=== PATIENT | female | born 1990 | race African-American/Black ===

== ENCOUNTER 2019-07-06 17:36 | Emergency (ER) | payer BC, SELFPAY ==
[2019-07-06 17:52] VITALS: BP 144/93; PULSE 91; RESP 24; TEMP 36.4; O2SAT 100
--- NOTE | 2019-07-06 19:04 | ED.GENADULT ---
HPI - General Adult General Chief complaint: Unspecified Stated complaint: ELEVATED BLOOD PRESSURE Time Seen by Provider: 07/06/19 18:30 Source: patient and family Mode of arrival: ambulatory Limitations: no limitations History of Present Illness HPI narrative: 29-year-old female presents for evaluation of headache that developed yesterday. She reports that has since improved. She also had nausea, upper abdominal pain yesterday along with 5+ episodes of diarrhea. Those symptoms have also improved however her abdomen feels a little unsettled still. She is reporting fatigue, rhinorrhea, congestion, mild cough. She took her blood pressure at home today and it was 150/130 which prompted her to come in. She reports a history of -induced hypertension that went away after delivery. She is not on any medication. She has a strong family history. She is denying any vision changes, eye pain, numbness or tingling to face or extremities, confusion, weakness, chest pain, shortness of breath, abnormal swelling. She is used ibuprofen for her headache with improvement. PCP is Dr. Bean and she was there 2 weeks ago for routine checkup, he had no concerns of hypertension at that time. Related Data Home Medications Medication Instructions Recorded Confirmed sertraline 50 mg tablet 50 mg PO DAILY 04/06/19 05/26/19 norethindrone (contraceptive) 0.35 mg PO DAILY 05/26/19 05/26/19 Allergies Allergy/AdvReac Type Severity Reaction Status Date / Time latex Allergy Unknown SWELLING Verified 05/26/19 17:43 BURNING SKIN Review of Systems Review of Systems: Narrative: CONSTITUTIONAL: Denies fever, chills, weight loss, or sweats. EYES: Denies visual changes, redness, or discharge. ENT: Head reports rhinorrhea, congestion. Denies sore throat, otalgia. CARDIOVASCULAR: Denies chest pain, palpitations, or edema. RESPIRATORY: Denies dyspnea. Reports mild cough GASTROINTESTINAL: Reports abdominal pain, nause, diarrhea but has since resolved. Denies vomiting. GENITOURINARY: Denies dysuria, hematuria, urinary frequency, malordous urine SKIN: Denies rash or itching. MUSCULOSKELETAL: Denies back pain, joint pain, myalgia, swelling NEUROLOGIC: Denies numbness, weakness. Reports headache that has resolved. All systems reviewed & are unremarkable except as noted in HPI and below PMFSH Social History Social History Smoking status: Never smoker Second hand tobacco smoke exposure: No Alcohol intake: never Comments At the time of my signature, I agree with nursing past medical, surgical, social and family history. There is no relevant family history pertinent to the presenting complaint. Exam Narrative: Exam Narrative: GENERAL: No distress, well appearing, well nourished, alert and calm HEAD: Normocephalic, atraumatic. No sinus tenderness noted EYES: Pupils equal, round. Extraocular movements intact. Conjunctivae without redness or drainage. EARS: Tympanic membranes without erythema. TM landmarks intact with good light reflex. Ear canals without discharge. NOSE: Nares patent. Nasal turbinates noninflamed. No nasal discharge MOUTH: Mucous membranes moist. No lesions. No cyanosis. Dentition grossly normal. THROAT: Oropharynx without signs erythema, exudates or lesions. Tonsils not enlarged. NECK: Supple. No lymphadenopathy. RESPIRATORY: Airway patent. Chest clear to auscultation bilaterally. Breath sounds equal bilaterally. No retractions. CARDIOVASCULAR: Regular rate and rhythm. No murmurs, rubs, gallops, or clicks. Capillary refill <2 seconds. GASTROINTESTINAL: Soft, nontender, non-distended. Bowel sounds normoactive. No masses. No organomegaly. No CVA tenderness MUSCULOSKELETAL: Range of motion grossly normal in all four extremities. Strength grossly normal in all four extremities. No edema. No swelling SKIN: Color normal. Warm and dry. No rashes. NEURO: Alert. Motor intact in a
== END 2019-07-06 19:19 | disposition home or self-care (01) ==
PROVIDERS: Emergency Provider Nurse Practitioner
DX: B34.9 Viral infection, unspecified (principal); R03.0 Elevated blood-pressure reading, without diagnosis of hypertension
CPT/HCPCS: 87804; 99212; G0463

== ENCOUNTER 2019-07-28 17:06 | Emergency (ER) | payer BC, SELFPAY ==
[2019-07-28 17:14] VITALS: BP 137/89; PULSE 91; RESP 18; TEMP 36.5; O2SAT 100
--- NOTE | 2019-07-28 17:42 | ED.GENADULT ---
HPI - General Adult General Chief complaint: Upper Respiratory Infection Stated complaint: lingering cough Time Seen by Provider: 07/28/19 17:42 Source: patient and RN notes reviewed Mode of arrival: ambulatory Limitations: no limitations History of Present Illness HPI narrative: 29-year-old -[place] female presents with complaints of upper respiratory infection, facial congestion, facial pain, cough, for the past 30 days. Génesis says she was recently treated for above symptoms and has a lingering cough, intermittent headaches (not the worst of her life). Dayquil and Natty-Tryon cold and flu with some relief. No facial swelling. Dry cough/intermittent productive cough (yellow-green phlegm). Nasal congestion and rhinorrhea. No chest pain or shortness of breath. No exacerbating factors. Denies fever or chills. Denies nausea, vomiting, and abdominal pain. Tolerating po intake well. Remains active. Génesis denies being , 1 week ago. Some parts of this dictation were generated by voice recognition software and may contain typographical and/or grammatical inaccuracies. Related Data Home Medications Medication Instructions Recorded Confirmed sertraline 50 mg tablet 50 mg PO DAILY 04/06/19 07/28/19 norethindrone (contraceptive) 0.35 mg PO DAILY 05/26/19 07/28/19 Allergies Allergy/AdvReac Type Severity Reaction Status Date / Time latex Allergy Unknown SWELLING Verified 07/28/19 17:23 BURNING SKIN Review of Systems Review of Systems: Narrative: CONSTITUTIONAL: Denies fever, chills, sweats. EYES: Denies visual changes, redness, discharge. ENT: Complains of rhinorrhea, congestion, facial pain and congestion. Denies sore throat, otalgia. CARDIOVASCULAR: Denies chest pain, palpitations, edema. RESPIRATORY: Denies dyspnea, wheezing. Complains of dry cough, intermittent productive. GASTROINTESTINAL: Denies abdominal pain, nausea, vomiting, diarrhea. GENITOURINARY: Denies dysuria, hematuria, abnormal discharge. SKIN: Denies rash or itching. MUSCULOSKELETAL: Denies acute back pain, joint pain, or myalgia. NEUROLOGIC: Denies numbness or focal weakness. Complains of intermittent JUARES. PSYCHIATRIC: Denies anxiety or depression. All systems reviewed & are unremarkable except as noted in HPI and below. [facility], [facility] Past Medical History Medical History (Updated 08/06/19 @ 03:05 by ALYSIA Perry) Anxiety Depression Hypertension Surgical History Surgical History H/O section Family History Family History Father Hypertension Family history of diabetes mellitus in first degree relative Mother Hypertension Grandparent Family history of malignant neoplasm of cervix Social History Social History (Updated 07/28/19 @ 18:12 by ALYSIA Perry) Smoking status: Never smoker Second hand tobacco smoke exposure: No Alcohol intake: never Substance use: never Living arrangements: with family Occupation/Education: occupation Gender identity (if verbalized by the patient): Female Comments At time of signature, agree with nurse past medical, surgical, social, and family history. There is no relevant family history pertinent to the presenting complaint. Exam Narrative: Exam Narrative: GENERAL: This is a well-nourished, well-developed patient, in no apparent distress. Talks in full sentences and ambulates with steady gait without dyspnea. HEAD: normocephalic, atraumatic. EYES: PERRL. Sclera clear/white. Vision is grossly intact. EARS: Pinna is normal shape and contour. Clear external auditory canals. Unable to see TMs due to large amount of cerumen, will attempt to remove, see procedure section. No gross hearing deficit. NOSE: External nose normal with no obvious nasal discharge, nares with mild redness and enlarged turbinates, clear rhinorrhea. SINUSES: Mild
== END 2019-07-28 18:15 | disposition home or self-care (01) ==
PROVIDERS: Emergency Provider Nurse Practitioner Family
DX: J00 Acute nasopharyngitis [common cold] (principal); J01.90 Acute sinusitis, unspecified; H61.23 Impacted cerumen, bilateral; F41.9 Anxiety disorder, unspecified; F32.9 Major depressive disorder, single episode, unspecified
CPT/HCPCS: 69209; 99213; G0463

== ENCOUNTER 2020-03-19 16:24 | Emergency (ER) | payer BC, SELFPAY ==
--- NOTE | 2020-03-19 16:28 | ED.GENADULT ---
HPI - General Adult General Chief complaint: Extremity Injury, Upper Stated complaint: lt hand pain/rt knee pain Time Seen by Provider: 03/19/20 16:28 Source: patient and RN notes reviewed History of Present Illness HPI narrative: Patient is a 29-year-old female who presents the urgent care with complaints of left hand and right knee pain. Patient states that the pain agitating her for months and she has been rubbing the areas . Patient denies of any known injury, fall, to cause the pain. Patient states she has been going to the [employer] with her mother and has been lifting weights recently but denies of any extreme heavy lifting or any strenuous activities. Denies any history of arthralgia. Denies any use of [id number] medications. No other acute complaints. No acute distress noted. Patient aware of the plan of care. Some parts of this dictation were generated by voice recognition software and may contain typographical and/or grammatical inaccuracies. Related Data Home Medications Medication Instructions Recorded Confirmed sertraline 50 mg tablet 50 mg PO DAILY 04/06/19 02/13/20 amlodipine 5 mg tablet 5 mg PO DAILY 02/09/20 02/13/20 norethindrone (contraceptive) 0.35 0.35 mg PO DAILY 02/09/20 02/09/20 mg tablet omeprazole 40 mg PO DAILY 03/19/20 03/19/20 Allergies Allergy/AdvReac Type Severity Reaction Status Date / Time latex Allergy Unknown SWELLING Verified 02/09/20 14:01 BURNING SKIN Review of Systems Review of Systems: Narrative: CONSTITUTIONAL: Denies fever, chills, or sweats. EYES: Denies visual changes, redness, or discharge. ENT: Denies rhinorrhea, congestion, sore throat, or otalgia. CARDIOVASCULAR: Denies chest pain, palpitations, or edema. RESPIRATORY: Denies cough or dyspnea. GASTROINTESTINAL: Denies abdominal pain, nausea, vomiting, or diarrhea. GENITOURINARY: Denies dysuria or hematuria. SKIN: Denies rash or itching. MUSCULOSKELETAL: Reports of left hand and right knee pain NEUROLOGIC: Denies headache, numbness, or weakness. All other systems reviewed are negative, except as documented in HPI. [facility] Past Medical History Medical History (Updated 03/19/20 @ 16:56 by ALYSIA Herrera) Anxiety Depression Hypertension Surgical History Surgical History H/O section Family History Family History Father Hypertension Family history of diabetes mellitus in first degree relative Mother Hypertension Grandparent Family history of malignant neoplasm of cervix Social History Social History Smoking status: Never smoker Second hand tobacco smoke exposure: No Alcohol intake: never Substance use: never Gender identity (if verbalized by the patient): Female Comments At the time of my signature, I reviewed and agree with the nursing past medical, surgical, social, and family history. There is no relevant family history pertinent to the patient complaint. Exam Narrative: Exam Narrative: GENERAL: This is a well-nourished, well-developed patient, in no apparent distress. HEAD: normocephalic, atraumatic. EYES: PERRL. Sclera clear/white. Vision is grossly intact. EARS: External ears normal NOSE: External nose normal with no obvious nasal discharge, nares without redness, no rhinorrhea. THROAT: Mucous membranes moist NECK: Neck supple CARDIOVASCULAR: Regular rate and rhythm SKIN: warm, intact with no suspicious lesions or rash, good texture and turgor. NEURO: awake, alert, and oriented to person, place and time. There were no obvious focal neurologic abnormalities. EXTREMITIES: No obvious edema, erythema, ecchymosis, abnormality or deformity noted to the left hand or right knee. Range of motion to left upper extremity and right lower extremity within normal limits. Positive strong left radial puls
[2020-03-19 16:33] VITALS: BP 145/103; PULSE 87; RESP 16; TEMP 36.7; O2SAT 100
== END 2020-03-19 16:44 | disposition home or self-care (01) ==
PROVIDERS: Emergency Provider Nurse Practitioner Family; PCP Family Medicine
DX: M77.9 Enthesopathy, unspecified (principal); M25.561 Pain in right knee; I10 Essential (primary) hypertension; F41.9 Anxiety disorder, unspecified; F32.9 Major depressive disorder, single episode, unspecified
CPT/HCPCS: 99212; G0463

== ENCOUNTER 2020-08-01 17:32 | Emergency (ER) | payer BC, SELFPAY ==
[2020-08-01 17:37] VITALS: BP 143/89; PULSE 84; RESP 16; TEMP 36.7; O2SAT 100
--- NOTE | 2020-08-01 17:40 | ED.DENTAL ---
HPI - Dental/Oral General Chief complaint: Dental/Oral Stated complaint: jaw pain Time Seen by Provider: 08/01/20 17:40 Source: patient and RN notes reviewed Mode of arrival: ambulatory Limitations: no limitations History of Present Illness HPI Narrative: 30-year-old female with history of hypertension presents with concern for left jaw pain. Reports the pain started this morning. Denies any jaw swelling, dental pain, history of dental problems. Denies any chest pain, shortness of breath, shoulder pain, arm pain, back pain. Denies nausea, vomiting, diuresis. She reports pain is exacerbated by rotating her neck or certain twisting of her body. She denies injury or trauma. She denies any intervention. MD Complaint: tooth pain Related Data Home Medications Medication Instructions Recorded Confirmed sertraline 50 mg tablet 50 mg PO DAILY 04/06/19 03/19/20 amlodipine 5 mg tablet 5 mg PO DAILY 02/09/20 03/19/20 norethindrone (contraceptive) 0.35 0.35 mg PO DAILY 02/09/20 03/19/20 mg tablet omeprazole 40 mg PO DAILY 03/19/20 03/19/20 Allergies Allergy/AdvReac Type Severity Reaction Status Date / Time latex Allergy Unknown SWELLING Verified 02/09/20 14:01 BURNING SKIN Review of Systems Review of Systems: Narrative: CONSTITUTIONAL: Denies malaise, chills, sweats, or fever. EYES: Denies visual changes, redness, or discharge. ENT: Denies rhinorrhea, congestion, sinus pain, otalgia or sore throat. CARDIOVASCULAR: Denies chest pain, palpitations, or edema. RESPIRATORY: Denies cough or dyspnea. GASTROINTESTINAL: Denies abdominal pain, nausea, vomiting, diarrhea SKIN: Denies bruising, redness, open skin MUSCULOSKELETAL: Denies back pain, joint pain, or myalgia. Reports left jaw pain NEUROLOGIC: Denies numbness, weakness, or headache. All systems reviewed & are unremarkable except as noted in HPI and below PMFSH Past Medical History Medical History (Updated 08/01/20 @ 17:53 by Juliette Weber NP) Anxiety Depression Hypertension Surgical History Surgical History H/O section Family History Family History Father Hypertension Family history of diabetes mellitus in first degree relative Mother Hypertension Grandparent Family history of malignant neoplasm of cervix Social History Social History Smoking status: Never smoker Second hand tobacco smoke exposure: No Alcohol intake: never Substance use: never Gender identity (if verbalized by the patient): Female Comments At time of signature, agree with nursing past medical, surgical, social and family history. There is no relevant family history pertinent to the presenting complaint Exam Narrative: Exam Narrative: GENERAL: Well-appearing, well-nourished, and in no acute distress. HEAD: Normocephalic, atraumatic. EYES: PERRLA, conjunctivae clear, and EOMI ENT: Nares clear, turbinates pink, no rhinorrhea or epistaxis. Mucous membranes moist. TM pearly dietz with sharp light reflex bilaterally; no tragal tenderness. Oropharynx without erythema or lesions. Tonsils not enlarged and without exudate. NECK: Supple. No lymphadenopathy. No jugular venous distension, thyromegaly, or carotid bruits. Carotids were easily palpable bilaterally. CHEST: No respiratory distress. Clear to auscultation. No bony deformities, no asymmetry. Speaks in full sentences. HEART: Regular rate and rhythm. No murmur heard. Normal peripheral pulses. SKIN: Warm, dry, no rash. NEURO: Alert and oriented x3. PSYCH: Normal mood and affect Course Course Emergency Course: Patient expressed concerns for jaw pain related to cardiac events. Patient denies any other symptoms besides jaw pain. Discussed limited diagnostic capability at [facility], offered transfer to emergency department for further evaluatio
== END 2020-08-01 17:56 | disposition home or self-care (01) ==
PROVIDERS: Emergency Provider Nurse Practitioner; PCP Family Medicine
DX: R68.84 Jaw pain (principal); F41.9 Anxiety disorder, unspecified; F32.9 Major depressive disorder, single episode, unspecified; I10 Essential (primary) hypertension
CPT/HCPCS: 99213; G0463

== ENCOUNTER 2021-05-01 17:08 | Emergency (ER) | payer BC, SELFPAY ==
[2021-05-01 17:20] VITALS: BP 145/93; PULSE 92; RESP 16; TEMP 36.4; O2SAT 100
[2021-05-01 17:22] VITALS: BP 145/93; PULSE 92; RESP 16; TEMP 36.4; O2SAT 100
--- NOTE | 2021-05-01 17:43 | ED.URI ---
HPI - URI/Sore Throat General Chief Complaint: Upper Respiratory Infection Stated Complaint: cough/sore throat/congestion History of Present Illness HPI Narrative: This is a 31 year old female that present with a virus that she has had for a week and now she is coughing more. Patient states she is vaccinated Patient states she has had a sore throat and she attempting to see if she has strep throat or not and what she can do for her symptoms Related Data Home Medications Medication Instructions Recorded Confirmed sertraline 50 mg tablet 50 mg PO DAILY 04/06/19 04/03/21 amlodipine 5 mg tablet 5 mg PO DAILY 02/09/20 04/03/21 norethindrone (contraceptive) 0.35 0.35 mg PO DAILY 02/09/20 04/03/21 mg tablet omeprazole 40 mg PO DAILY 03/19/20 04/03/21 Allergies Allergy/AdvReac Type Severity Reaction Status Date / Time latex Allergy Unknown SWELLING Verified 04/03/21 13:11 BURNING SKIN Review of Systems Review of Systems: cough sore throat All systems reviewed & are unremarkable except as noted in HPI and below PMFSH Past Medical History Medical History (Updated 05/01/21 @ 17:44 by Poonam Aguirre NP) Anxiety Depression Hypertension Surgical History Surgical History H/O section Family History Family History Father Hypertension Family history of diabetes mellitus in first degree relative Mother Hypertension Grandparent Family history of malignant neoplasm of cervix Social History Social History Smoking status: Never smoker Second hand tobacco smoke exposure: No Alcohol intake: never Substance use: never Gender identity (if verbalized by the patient): Female Comments At time as signature, I have reviewed and agree with nursing past medical, social, surgical and family history. Please see nursing chart for further information. There is no relevant family history pertinent to the presenting complaint. Exam Narrative: GENERAL:Well-appearing, well-nourished, and in no acute distress. HEAD:Normocephalic EYES: PERRLA ENT: Nares clear, no rhinorrhea clear postnasal drainage CHEST: Clear to auscultation. No respiratory distress. HEART: Regular rate and rhythm. EXTREMITIES: Normal range of motion. No edema. SKIN: Warm, dry, no rash. NEURO: No focal deficits. Alert and oriented x3. Course Course Emergency Course: Strep negative Vital Signs Vital signs: Vital Signs Temperature 97.6 F 05/01/21 17:20 Pulse Rate 92 05/01/21 17:20 Respiratory Rate 16 05/01/21 17:20 Blood Pressure 145/93 H 05/01/21 17:20 Pulse Oximetry 100 05/01/21 17:20 Temperature 97.6 F 05/01/21 17:22 Pulse Rate 92 05/01/21 17:22 Respiratory Rate 16 05/01/21 17:22 Blood Pressure 145/93 H 05/01/21 17:22 Pulse Oximetry 100 05/01/21 17:22 MDM - URI/Sore Throat Differential Diagnosis Differential diagnosis: Likely upper respiratory infection, croup, otitis media, sinusitis, viral infection, bronchitis, influenza and pharyngitis Lab Data Labs: Strep Screen Presumptive Negative *(Reference Range: Negative)* Discharge Plan Discharge Clinical Impression: Bronchitis Hypertension Qualifiers: Hypertension type: unspecified Qualified Code(s): I10 - Essential (primary) hypertension Patient Disposition: Home, Self-Care Condition: Stable Instructions: Antibiotic Form, Acute Bronchitis (ED), Hypertension (ED) Additional Instructions: Viral illness may last between 7-12days; antibiotic is NOT recommended at this time. Recommend antihistamine such as Benadryl at night time and Claritin/Zyrtec/Rani during the day Also, recommend symptomatic treatment includes: rest, fluids, and increase humidity of the air at home. Recommend Aceta
== END 2021-05-01 17:51 | disposition home or self-care (01) ==
PROVIDERS: Emergency Provider Nurse Practitioner Family; PCP Family Medicine
DX: J40 Bronchitis, not specified as acute or chronic (principal); I10 Essential (primary) hypertension; F41.9 Anxiety disorder, unspecified; F32.A Depression, unspecified
CPT/HCPCS: 87081; 87880; 99213; G0463

== ENCOUNTER 2021-05-04 20:56 | Emergency (ER) | payer BC, SELFPAY ==
[2021-05-04 20:58] VITALS: BP 153/103; PULSE 80; RESP 18; TEMP 36.7; O2SAT 100
--- NOTE | 2021-05-04 22:03 | ED.WOUNDLAC ---
HPI - Wound/Laceration General Chief Complaint: Wound/Laceration Stated Complaint: Right thumb wound,lac Time Seen by Provider: 05/04/21 21:16 History of Present Illness HPI narrative: Patient is a 31-year-old female who presents ER after suffering laceration to her right thumb. She was opening a green martini can when she cut herself on the leg. She came here because it was bleeding profusely. No numbness or tingling. Normal range of motion. It is located on the volar aspect of the medial aspect of the middle phalanx. Is superficial and does not involve tendon. Tetanus shot up-to-date. Related Data Home Medications Medication Instructions Recorded Confirmed sertraline 50 mg tablet 50 mg PO DAILY 04/06/19 04/03/21 amlodipine 5 mg tablet 5 mg PO DAILY 02/09/20 04/03/21 norethindrone (contraceptive) 0.35 0.35 mg PO DAILY 02/09/20 04/03/21 mg tablet omeprazole 40 mg PO DAILY 03/19/20 04/03/21 Allergies Allergy/AdvReac Type Severity Reaction Status Date / Time latex Allergy Unknown SWELLING Verified 04/03/21 13:11 BURNING SKIN Review of Systems Review of Systems: All systems reviewed & are unremarkable except as noted in HPI and below Integumentary/Breasts: Skin/Breast: Denies erythema and Denies rash Comments: thumb laceration Neurologic: Denies focal weakness and Denies numbness PMFSH Past Medical History Medical History (Updated 05/04/21 @ 22:05 by Ruel Morales MD) Anxiety Depression Hypertension Surgical History Surgical History H/O section Family History Family History Father Hypertension Family history of diabetes mellitus in first degree relative Mother Hypertension Grandparent Family history of malignant neoplasm of cervix Social History Social History Smoking status: Never smoker Second hand tobacco smoke exposure: No Alcohol intake: never Substance use: never Gender identity (if verbalized by the patient): Female Exam Narrative: GENERAL: Well-appearing, well-nourished, and in no acute distress. HEAD: Normocephalic, atraumatic. HEART: Regular rate and rhythm. Normal peripheral pulses. SKIN: Warm, dry, no rash. 1.5 cm laceration dorsal aspect right thumb medial aspect of middle phalanx. Superficial without involvement of tendon. Full range of motion with neurovascular intact. PSYCH: Normal mood and affect. Course Course Emergency Course: Discussed treatment plan, patient verbalized understanding. Prefers to avoid suturing so Steri-Strips placed. Vital Signs Vital signs: Vital Signs Temperature 98.0 F 05/04/21 20:58 Pulse Rate 80 05/04/21 20:58 Respiratory Rate 18 05/04/21 20:58 Blood Pressure 153/103 H 05/04/21 20:58 Pulse Oximetry 100 05/04/21 20:58 Temperature 98.0 F 05/04/21 20:58 Pulse Rate 80 05/04/21 20:58 Respiratory Rate 18 05/04/21 20:58 Blood Pressure 153/103 H 05/04/21 20:58 Pulse Oximetry 100 05/04/21 20:58 Procedures Laceration Laceration 1: Date: 05/04/21 Time: 21:50 Site: hand Side (If applicable): right Size (cm): 1.5 Description: linear Depth: simple, single layer Pre-repair: irrigated ====== Skin Level ====== Skin layer closed with: steri strips ====== Subcutaneous Layer ====== ====== Muscle Layer ====== ====== Tendon Layer ====== Discharge Plan Discharge Clinical Impression: Laceration Patient Disposition: Home, Self-Care Condition: Stable Instructions: Steristrips (ED) Additional Instructions: Return to the ER if your wound becomes red/hot/swollen, your it is draining pus, you have fever over 100.4 ?F. Prescriptions: No Action omeprazole 40 mg capsule,delayed release(DR/EC) 40 mg PO DAILY RF: 0 methylprednis
[2021-05-04 22:31] VITALS: PULSE 68; RESP 16; O2SAT 98
== END 2021-05-04 22:32 | disposition home or self-care (01) ==
PROVIDERS: Emergency Provider Emergency Medicine; PCP Family Medicine
DX: S61.011A Laceration without foreign body of right thumb without damage to nail, initial encounter (principal); I10 Essential (primary) hypertension; F41.9 Anxiety disorder, unspecified; F32.A Depression, unspecified; W26.8XXA Contact with other sharp object(s), not elsewhere classified, initial encounter
CPT/HCPCS: 99282

== ENCOUNTER 2021-09-19 12:39 | Emergency (ER) | payer BC, SELFPAY ==
[2021-09-19 12:48] VITALS: BP 133/73; PULSE 81; RESP 16; TEMP 36.3; O2SAT 99
--- NOTE | 2021-09-19 13:15 | ED.NAVMDI ---
HPI - Nausea/Vomiting/Diarrhea General Chief complaint: Nausea/Vomiting/Diarrhea Stated complaint: NAUSEA/ABD PAIN Time Seen by Provider: 09/19/21 13:06 Source: patient and RN notes reviewed Mode of arrival: ambulatory Limitations: no limitations History of Present Illness HPI Narrative: Patient presents today complaining of nausea and diarrhea since yesterday. Denies vomiting. She had 3 loose diarrhea stools yesterday and 1 so far today. Denies any blood or mucus in the stool. She does report some discomfort in the epigastrium as well. Denies fever, dysuria, hematuria, sick contacts. She has tried no [id number] medication for symptoms prior to arrival. MD elicited complaint: nausea and diarrhea Related Data Home Medications Medication Instructions Recorded Confirmed sertraline 50 mg tablet 50 mg PO DAILY 04/06/19 09/19/21 amlodipine 5 mg tablet 5 mg PO DAILY 02/09/20 09/19/21 norethindrone (contraceptive) 0.35 0.35 mg PO DAILY 02/09/20 09/19/21 mg tablet omeprazole 40 mg PO DAILY 03/19/20 09/19/21 Allergies Allergy/AdvReac Type Severity Reaction Status Date / Time latex Allergy Unknown SWELLING Verified 09/19/21 12:47 BURNING SKIN Review of Systems Review of Systems: CONSTITUTIONAL: Denies body aches, fever, chills, or sweats. EYES: Denies visual changes, redness, or discharge. ENT: Denies rhinorrhea, congestion, sore throat, or otalgia. CARDIOVASCULAR: Denies chest pain, palpitations, or edema. RESPIRATORY: Denies cough or dyspnea. GASTROINTESTINAL: Denies vomiting.+ Nausea, diarrhea, abdominal discomfort GENITOURINARY: Denies dysuria or hematuria. SKIN: Denies rash, itching, or wounds. MUSCULOSKELETAL: Denies back pain, joint pain, or myalgia. NEUROLOGIC: Denies headache, numbness, tingling, or weakness. PSYCH: Denies depression or anxiety. [facility] Past Medical History Medical History (Updated 09/19/21 @ 14:25 by Joycelyn Hill, ALYSIA, GUILLERMO) Anxiety Depression Hypertension Surgical History Surgical History H/O section Family History Family History Father Hypertension Family history of diabetes mellitus in first degree relative Mother Hypertension Grandparent Family history of malignant neoplasm of cervix Social History Social History Smoking status: Never smoker Second hand tobacco smoke exposure: No Alcohol intake: never Substance use: never Gender identity (if verbalized by the patient): Female Comments At time of signature, I have reviewed and agree with nursing past medical, surgical, social and family history unless otherwise noted. Please see nursing chart for further information. There is no relevant family history pertinent to the presenting complaint Exam Narrative: GENERAL: Well-appearing, well-nourished, and in no acute distress. HEAD: Normocephalic, atraumatic. EYES: EOMI. No redness or drainage. Conjunctivae normal. ENT: Mucous membranes pink and moist. NECK: Normal AROM. Supple. No lymphadenopathy. CHEST: No respiratory distress. Clear to auscultation. HEART: Regular rate and rhythm. No murmur appreciated. Normal peripheral pulses. ABDOMEN: Soft, nontender, nondistended, normal active bowel sounds.-CVAT MUSCULOSKELETAL: No bony tenderness. EXTREMITIES: Normal range of motion. No edema. SKIN: Warm, dry, no rash. Capillary refill normal. Normal skin turgor. NEURO: No focal deficits. Alert and oriented x3. Gait steady. PSYCH: Normal affect. No signs of depression or anxiety. Course Course Emergency Course: Gave pt option of being transferred to ER for her symptoms. She has declined. 1402- Patient states her nausea has much improved after 8mg zofran. 1422- She has been able to keep down cup of water for po challenge. Discussed hydrating today.
[2021-09-19] MEDS: ONDANSETRON HCL ODT 4 MG TABLET 8 MG SUBLINGUAL (13:21)
--- NOTE | 2021-09-19 15:04 | PC.NURSE ---
1321 Patient reports nausea at a 6 on 0-10 scale. Medication administered as ordered.
--- NOTE | 2021-09-19 15:05 | PC.NURSE ---
1405 reports nausea 3 on 0-10 scale. No vomiting. Given h2o with ice chips.
== END 2021-09-19 14:53 | disposition home or self-care (01) ==
PROVIDERS: Emergency Provider Nurse Practitioner; PCP Family Medicine
DX: R11.0 Nausea (principal); R19.7 Diarrhea, unspecified; F41.9 Anxiety disorder, unspecified; F32.A Depression, unspecified; I10 Essential (primary) hypertension
CPT/HCPCS: 99213; A9270; G0463

== ENCOUNTER 2024-04-28 15:57 | Emergency (ER) | payer BC, SELFPAY ==
--- NOTE | ~2024-04-28 | XR_ITS ---
EXAMINATION: XR chest 2V 04/28/2024 16:52 INDICATION: Productive cough PROCEDURE: 2 view chest COMPARISON: 09/25/2018 FINDINGS: The lungs are clear. The cardiomediastinal silhouette is within normal limits. There are no pleural effusions. There is no pneumothorax suspected. IMPRESSION: 1: NO ACUTE CARDIOPULMONARY DISEASE. Reviewed, dictated and finalized at location B. [facility]
[2024-04-28 16:11] VITALS: BP 146/89; PULSE 99; RESP 16; TEMP 36.6; O2SAT 100
[2024-04-28 16:19] LABS: EDUAAPPEAR Cloudy; EDUABILI Negative (Negative); EDUABLOOD 3+ (Negative); EDUACOLOR1 Yellow; EDUAGLUCOSE Negative (Negative); EDUAKETONE Negative (Negative); EDUALEUKO 3+ (Negative); EDUANITRATE Negative (Negative); EDUAPH 8.5; EDUAPROTEIN 2+ (Negative)
--- NOTE | 2024-04-28 16:20 | ED_ITS ---
HPI - General Adult General Chief complaint: Urogenital-Female Stated complaint: Congestion, and urine irriation Time Seen by Provider: 04/28/24 16:22 Source: patient, RN notes reviewed and old records reviewed Mode of arrival: ambulatory Limitations: no limitations History of Present Illness HPI narrative: 34-year-old female to Express Care with complaint of nasal congestion, productive cough that is worse night for 1 week. Patient also endorsing lower abdominal discomfort with urinary hesitancy, dysuria, urgency. patient history urinary tract; reports history of pneumonia child. Patient denies fever, sh ortness of breath, difficulty swallowing, abdominal pain, flank pain. Patient able to tolerate fluids by mouth. Patient resting comfortably in exam room in no acute distress. Respirations even and nonlabored. Patient able to speak in complete sentences without difficulty. Related Data Home Medications ?Medication ?Instructions ?Recorded ?Confirmed ?Last Taken ?Type sertraline 50 mg tablet 50 mg PO DAILY 04/06/19 04/28/24 Unknown History amlodipine 5 mg tablet 5 mg PO DAILY 02/09/20 04/28/24 Unknown History omeprazole 40 mg capsule,delayed 40 mg PO DAILY 03/19/20 04/28/24 Unknown History release norethindrone (contraceptive) 0.35 0.35 mg PO DAILY 04/28/24 04/28/24 Unknown History mg tablet Allergies Allergy/AdvReac Type Severity Reaction Status Date / Time latex Allergy Unknown SWELLING Verified 04/28/24 16:22 BURNING SKIN Review of Systems Review of Systems: All systems reviewed & are unremarkable except as noted in HPI and below Constitutional: Constitutional: Reports no additional constitutional complaints Eyes: Eyes: Reports no additional eye complaints ENT: Reports system reviewed and no additional complaints, except as documented Cardiovascular: Cardiovascular: Reports no additional cardiovascular complaints, Denies chest pain and Denies dyspnea Respiratory: Respiratory: Reports no additional respiratory complaints, Denies cough and Denies dyspnea Musculoskeletal: Musculoskeletal: Reports no additional musculoskeletal complaints Neurologic: Reports system reviewed and no additional complaints, except as documented Psychiatric: Psychiatric: Reports no additional psychiatric complaints [facility] Past Medical History Medical History (Updated 04/29/24 @ 00:01 by David Avelar) Hypertension Anxiety Depression Surgical History Surgical History H/O section Family History Family History Father Hypertension Family history of diabetes mellitus in first degree relative Mother Hypertension Grandparent Family history of malignant neoplasm of cervix Social History Social History Smoking status: Never smoker Second hand tobacco smoke exposure: No Alcohol intake: never Substance use: never Lack of Transportation: No Lack of Food: Never True Current Housing: I Have Housing Concerned About Future Housing: No Difficulty Paying Gas/Electric Bills: No Difficulty Paying for Meds: No Currently Unemployed: No Education: Associate Degree Difficulty w/ Childcare or Family Care: No Living arrangements: with family Occupation/Education: occupation Gender identity (if verbalized by the patient): Female Comments At the time of my signature, I reviewed and agree with the nursing past medical, surgical, social, and family history. There is no relevant family history pertinent to the patient complaint. Exam Const: General: cooperative, healthy appearing, comfortable, no acute distress, alert and well nourished Nutritional Appearance: well nourished Orientation/consciousness: patient oriented x3 Limitations: no limitations HENMT: Head: normal to inspection Ears: external ears normal Face/Nose/Sinus: Normal external nose present, Normal nares present, normal facial exam, No erythema and No edema Face and sinus: normal facial exam, no erythema and no edema Mouth: Yes Normal oral and palatal mucosa present Eyes: General: appearance normal, both eyes and all related structures Neck: Neck: normal visual inspection, full ROM and no meningeal signs Lymphatic: no lymphadenopathy noted and no lymphedema noted Chest: Chest palpation & inspection: normal inspection of the chest Resp: Effort & Inspection: normal respiratory effort and able to speak in complete sentences Auscultation: clear to auscultation bilaterally Cardio: Jugular venous distension: no JVD Rate: regular rate Rhythm: regular rhythm Back/Spine/Pelvis: Cervical Spine: cervical ROM normal Skin: General skin exam: normal color, no rashes or lesions noted and turgor normal Neuro: General: patient oriented x3, gait normal, moves all extremities and no meningeal signs Speech: normal speech Gait exam (Neuro): Normal gait present Extrem: General: normal to inspection, full ROM and capillary refill normal Psych: Appearance: grossly normal and well kempt Course Course Emergency Course: Some parts of this dictation were generated by voice recognition software and may contain typographical and/or grammatical inaccuracies. Level of Care: Express Care Visit Vital Signs Vital signs: Vital Signs Temperature 36.6 C 04/28/24 16:11 Pulse Rate 99 04/28/24 16:11 Respiratory Rate 16 04/28/24 16:11 Blood Pressure 146/89 H 04/28/24 16:11 Pulse Oximetry 100 04/28/24 16:11 Temperature 36.6 C 04/28/24 16:11 Pulse Rate 99 04/28/24 16:11 Respiratory Rate 16 04/28/24 16:11 Blood Pressure 146/89 H 04/28/24 16:11 Pulse Oximetry 100 04/28/24 16:11 reviewed Medical Decision Making MDM Narrative Medical decision making narrative: 34-year-old female to Express Care with complaint of nasal congestion, productive cough that is worse night for 1 week. Patient also endorsing lower abdominal discomfort with urinary hesitancy, dysuria, urgency. patient history urinary tract; reports history of pneumonia child. Patient denies fever, shortness of breath, difficulty swallowing, abdominal pain, flank pain. Patient able to tolerate fluids by mouth. Patient resting comfortably in exam room in no acute distress. Respirations even and nonlabored. Patient able to speak in complete sentences without difficulty. Patient is sitting comfortably in exam room nontoxic in appearance. On exam, diminished lung sounds bilaterally. Posterior oropharynx erythematous with postnasal drainage. Bilateral EACs occluded with wax. Patient UA positive for UTI in clinic. Culture sent. Radiology impression: NO ACUTE CARDIOPULMONARY DISEASE. Patient appropriate for outpatient treatment and follow-up. Discharge instructions reviewed with patient, as well as provided in writing per nursing staff. The instructions also include specific and strict return/GO TO THE ER as well as f/u information. All questions have been answered, and the patient deny any further questions with discharge and discharge plan. Some parts of this dictation were generated by voice recognition software and may contain typographical and/or grammatical inaccuracies. Differential Diagnosis Differential Diagnosis: Urinary tract infection, acute cystitis, sexually transmitted infection, pneumonia, upper respiratory infection, bacterial sinusitis, otitis media impacted cerumen Vital Signs Vital Signs: Vital Signs Temperature 36.6 C 04/28/24 16:11 Pulse Rate 99 04/28/24 16:11 Respiratory Rate 16 04/28/24 16:11 Blood Pressure 146/89 H 04/28/24 16:11 Pulse Oximetry 100 04/28/24 16:11 Temperature 36.6 C 04/28/24 16:11 Pulse Rate 99 04/28/24 16:11 Respiratory Rate 16 04/28/24 16:11 Blood Pressure 146/89 H 04/28/24 16:11 Pulse Oximetry 100 04/28/24 16:11 Lab Data Labs: Lab Results 04/28/24 Range/Units 16:12 POC Urine Color Yellow POC Urine Clarity Cloudy POC Urine pH 8.5 POC Ur Specif [place] 1.020 POC Urine Protein 2+ (Negative) POC Ur Glucose (UA) Negative (Negative) POC Urine Ketones Negative (Negative) POC Urine Blood 3+ (Negative) POC Urine Nitrite Negative (Negative) POC Urine Bilirubin Negative (Negative) POC Urine Urobilinogen 2.0 POC U Leukocyte Esteras 3+ (Negative) Imaging Data Radiologist's impression: EXAMINATION: XR chest 2V 04/28/2024 16:52 INDICATION: Productive cough PROCEDURE: 2 view chest COMPARISON: 09/25/2018 FINDINGS: The lungs are clear. The cardiomediastinal silhouette is within normal limits. There are no pleural effusions. There is no pneumothorax suspected. IMPRESSION: 1: NO ACUTE CARDIOPULMONARY DISEASE. Discharge Plan Discharge Clinical Impression: Urinary tract infection, Bilateral impacted cerumen, Upper respiratory infection Patient Disposition: Home, Self-Care Condition: Stable Instructions: Urinary Tract Infection in Women (ED) Additional Instructions: We will send a urine culture off to the lab; if the culture identifies an organism that the prescribed antibiotic will not treat, you will receive a phone call from an urgent care staff member and an appropriate antibiotic will be prescribed. -Your symptoms should begin to improve within a day of starting antibiotics. But you should finish all the antibiotic pills you get. Otherwise your infection might come back. -Also recommend: drink more fluid. It might help flush out germs, and it does no harm -Tylenol/ibuprofen as needed for pain -Follow-up with your primary care provider for urine recheck OR if your symptoms persist, change or worsen significantly before you can contact your personal physician then please, without delay, go to the emergency department for further evaluation. Your sinus/respiratory symptoms are likely due to a viral illness, which is not treated with antibiotics. Viral symptoms can be present for up to a few weeks. -Alternate Tylenol and Motrin per package directions for fever or pain. -Antihistamine medication such as Benadryl at night and Zyrtec/Claritin/Rani during the day can help improve symptoms. -Use Flonase twice a day for 5 days then daily to help reduce the inflammation and dry up your sinuses. -You can also use Sudafed or Mucinex. Be sure to drink plenty of water with these medications at least 8 ounces with every dose and it is important to drink 8 to 10 glasses of water per day. Water is a natural decongestant -Eat and drink things that are easy to swallow, like tea or soup, or popsicles. -Oral rinses such as: Salt water gargles and/or may use topical anesthetic (eg. Chloraseptic spray) or lozenges to relieve dryness or throat pain). -Frequent hand washing or hand windows and doors installer is one of the best ways to prevent spread of infection. -Using a vaporizer or humidifier at night will also help thin secretions and help with coughing up phlegm. -Follow up with primary care provider in 2-3 days if condition is not improving; or seek ER visit if you have trouble breathing, cannot drink enough fluids, have muffled voice, difficulty opening your mouth, or severe swelling. as discussed, use [id number] Debrox in both ears for impacted wax Patient Language: Setswana Prescriptions: New cephalexin 500 mg capsule 500 mg PO Q12H Qty: 14 0RF No Action omeprazole 40 mg capsule,delayed release(DR/EC) 40 mg PO DAILY norethindrone (contraceptive) 0.35 mg tablet 0.35 mg PO DAILY amlodipine 5 mg tablet 5 mg PO DAILY sertraline 50 mg tablet 50 mg PO DAILY Follow-up/Referrals: Vikas,Joaquin Hogue MD [Primary Care Provider] - Stand Alone Forms: Work/School Release IP
== END 2024-04-28 17:27 | disposition home or self-care (01) ==
PROVIDERS: Emergency Provider Nurse Practitioner Family; PCP Family Medicine
DX: N39.0 Urinary tract infection, site not specified (principal); H61.23 Impacted cerumen, bilateral; J06.9 Acute upper respiratory infection, unspecified; I10 Essential (primary) hypertension; F41.9 Anxiety disorder, unspecified; F32.A Depression, unspecified
CPT/HCPCS: 71046; 81003; 87081; 99213; G0463

== ENCOUNTER 2024-11-30 16:32 | Emergency (ER) | payer OTHER, BC, SELFPAY ==
[2024-11-30 16:42] VITALS: BP 140/82; PULSE 99; RESP 16; TEMP 36.8; O2SAT 100
--- NOTE | 2024-11-30 16:45 | ED_ITS ---
HPI - Back Pain/Injury General Chief Complaint: Back Pain/Injury Stated Complaint: CHEST/BACK PAIN Time Seen by Provider: 11/30/24 16:45 Source: patient Mode of arrival: ambulatory Limitations: no limitations History of Present Illness HPI Narrative: 34 yo F presents with c/o upper chest pain and L upper back pain for 5 days. Started after lifting her daughter up on top of car. Pain worse with movement. Took 1 dose of ibuprofen. pt states do you think it could be my heart. Denies N/V, diaphoresis, fatigue. All systems reviewed and negative except as noted above. Related Data Home Medications ?Medication ?Instructions ?Recorded ?Confirmed ?Last Taken ?Type sertraline 50 mg tablet 50 mg PO DAILY 04/06/19 11/30/24 Unknown History amlodipine 5 mg tablet 5 mg PO DAILY 02/09/20 11/30/24 Unknown History omeprazole 40 mg capsule,delayed 40 mg PO DAILY 03/19/20 11/30/24 Unknown History release norethindrone (contraceptive) 0.35 0.35 mg PO DAILY 04/28/24 11/30/24 Unknown History mg tablet Allergies Allergy/AdvReac Type Severity Reaction Status Date / Time latex Allergy Unknown SWELLING Verified 11/30/24 16:39 BURNING SKIN Review of Systems Review of Systems: CONSTITUTIONAL: Denies fever, chills, or sweats. EYES: Denies visual changes, redness, or discharge. ENT: Denies rhinorrhea, congestion, sore throat, or otalgia. CARDIOVASCULAR: Denies chest pain, palpitations, or edema. RESPIRATORY: Denies cough or dyspnea. GASTROINTESTINAL: Denies abdominal pain, nausea, vomiting, or diarrhea. GENITOURINARY: Denies dysuria or hematuria. SKIN: Denies rash or itching. MUSCULOSKELETAL: Denies back pain, joint pain, or myalgia. NEUROLOGIC: Denies headache, numbness, or weakness. PSYCHIATRIC: Denies anxiety or depression. All other systems reviewed are negative, except as documented in HPI. [facility] Past Medical History Medical History (Updated 11/30/24 @ 17:03 by Sandrita Cabrera NP) Hypertension Anxiety Depression Surgical History Surgical History H/O section Family History Family History Father Hypertension Family history of diabetes mellitus in first degree relative Mother Hypertension Grandparent Family history of malignant neoplasm of cervix Social History Social History Smoking status: Never smoker Second hand tobacco smoke exposure: No Alcohol intake: never Substance use: never Lack of Transportation: No Lack of Food: Never True Current Housing: I Have Housing Concerned About Future Housing: No Difficulty Paying Gas/Electric Bills: No Difficulty Paying for Meds: No Currently Unemployed: No Education: Associate Degree Difficulty w/ Childcare or Family Care: No Living arrangements: with family Occupation/Education: occupation Gender identity (if verbalized by the patient): Female Comments At time of signature, agree with nursing past medical, surgical, social and family history. There is no relevant family history pertinent to the presenting complaint. Exam Narrative: GENERAL: This is a well-nourished, well-developed patient, in no apparent distress. HEAD: normocephalic, atraumatic. EYES: PERRL. Sclera clear/white. Vision is grossly intact. EARS: External ears normal NOSE: External nose normal NECK: Neck supple, non-tender without lymphadenopathy, masses or thyromegaly. CARDIOVASCULAR: Regular rate and rhythm without murmurs, gallops, or rubs. RESPIRATORY: Clear to auscultation. Breath sounds equal bilaterally. No wheezes, rales, or rhonchi. MUSCULOSKELETAL: tenderness to L upper chest and L rhomboid. pain reproduced with adduction of L arm SKIN: warm, Dry, intact with no suspicious lesions or rash, good texture and turgor. NEURO: awake, alert, and oriented to person, place and time. There were no obvious focal neurologic abnormalities. EXTREMITIES: No joint tenderness, effusion, or edema noted. Course Course Level of Care: Express Care Visit Vital Signs Vital signs: Vital Signs Temperature 36.8 C 11/30/24 16:42 Pulse Rate 99 11/30/24 16:42 Respiratory Rate 11/30/24 16:42 Blood Pressure 140/82 11/30/24 16:42 Pulse Oximetry 100 11/30/24 16:42 Temperature 36.8 C 11/30/24 16:42 Pulse Rate 99 11/30/24 16:42 Respiratory Rate 16 11/30/24 16:42 Blood Pressure 140/82 11/30/24 16:42 Pulse Oximetry 100 11/30/24 16:42 reviewed MDM - Back Pain/Injury MDM Narrative Medical decision making narrative: EKG HR 88, NSR, no ischemia. will treat musculoskeletal CP with ibuprofen, robaxin, stretching. EKG normal. recommend follow up with PCP. Discharge Plan Discharge Clinical Impression: Strain of muscle and tendon of unspecified wall of thorax, initial encounter Patient Disposition: Home Condition: Stable Instructions: Muscle Strain (ED) Additional Instructions: Take medications as prescribed. Methocarbamol as a muscle relaxant may cause drowsiness. Do not drive while taking this medication. Alternate between ice and heat. Do stretching exercises as tolerated. Follow-up with your primary care physician if symptoms are not improving. Patient Language: [place] Prescriptions: New methocarbamol 750 mg tablet 750 mg PO Q8H PRN (Reason: muscle pain/spasm) Qty: 30 0RF ibuprofen 600 mg tablet 600 mg PO Q6H PRN (Reason: pain) Qty: 30 0RF No Action omeprazole 40 mg capsule,delayed release(DR/EC) 40 mg PO DAILY norethindrone (contraceptive) 0.35 mg tablet 0.35 mg PO DAILY amlodipine 5 mg tablet 5 mg PO DAILY sertraline 50 mg tablet 50 mg PO DAILY Follow-up/Referrals: Vikas,Joaquin Hogue MD [Primary Care Provider] - Time of Disposition: 17:04
--- NOTE | 2024-11-30 16:53 | ECG_ITS ---
Test Date: 2024-11-30 17:01:38 Measurements Intervals [place] Rate: 88 P: 40 GA: 142 QRS: 38 QRSD: 99 T: 30 QT: 344 QTc: 418 Interpretive Statements NORMAL SINUS RHYTHM No previous ECG available for comparison Electronically Signed On 12-01-2024 11:43:05 CDT by Hipolito Schmidt M.D.
== END 2024-11-30 17:07 | disposition home or self-care (01) ==
PROVIDERS: Emergency Provider Nurse Practitioner Family; PCP Family Medicine
DX: S29.011A Strain of muscle and tendon of front wall of thorax, initial encounter (principal); X50.0XXA Overexertion from strenuous movement or load, initial encounter; I10 Essential (primary) hypertension; F41.9 Anxiety disorder, unspecified; F32.A Depression, unspecified
CPT/HCPCS: 93005; 99213; G0463